=== PATIENT | female | born 1955 | race Caucasian/White ===

== ENCOUNTER 2023-08-11 13:11 | Emergency (ER) | payer MEDICARE, SELFPAY ==
--- NOTE | ~2023-08-11 | XR_ITS ---
Left wrist Technique: PA and lateral views were obtained. Clinical History: Injury Findings: There is a comminuted fracture distal radius with intra-articular extension. There is mild articular surface step-off, and mild displacement of the fracture fragments overall. There is advance d degenerative change of the triscaphe joint and first CMC joint. Remaining joint spaces are preserve d. Soft tissues are unremarkable. Impression: Comminuted, intra-articular, displaced fracture the distal radius, as detailed above. 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 Reviewed, dictated and finalized at location [facility]. Impression: Comminuted, intra-articular, displaced fracture the distal radius, as detailed above. 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
--- NOTE | ~2023-08-11 | CT_ITS ---
Non-contrast Head CT History: Head injury Technique: Axial non-contrast imaging of the brain was performed. Dose reduction technique was used on this scan by utilizing automated exposure control and iterative reconstruction technique. The dose -length product (DLP) was 605.33 mGy-cm. Findings: There is no evidence of intracranial hemorrhage, mass lesion, or acute infarct. There is c ystic encephalomalacia at the superior left frontal lobe with bifrontal craniotomy present. The ventr icles and subarachnoid spaces are normal in size. The calvarium appears normal. The visualized para nasal sinuses and mastoid air cells are clear. Impression: No acute abnormality seen. Presumed postsurgical encephalomalacia at the superior left frontal lobe with bifrontal superior cran iotomy. Correlate with surgical history. Reviewed, dictated and finalized at [facility]. Impression: No acute abnormality seen. Presumed postsurgical encephalomalacia at the superior left frontal lobe with b ifrontal superior craniotomy. Correlate with surgical history.
[2023-08-11 13:14] VITALS: BP 145/80; PULSE 92; RESP 16; TEMP 36.3; O2SAT 100
[2023-08-11 13:47] VITALS: BP 123/76; PULSE 84; RESP 14; O2SAT 95
[2023-08-11 14:16] VITALS: BP 125/75; PULSE 85; RESP 12; TEMP 36.6; O2SAT 97
--- NOTE | 2023-08-11 14:24 | WC.ED.TRAUMA ---
HPI - Trauma General Chief Complaint: Extremity Injury, Upper Stated Complaint: L arm deformity/pain Time Seen by Provider: 08/11/23 13:18 History of Present Illness HPI narrative: Patient tripped and fell and landed on her L wrist, head. No loss of consciousness but she did feel dazed afterwards, she has history of brain surgery so she would like to make sure everything looks okay. She has pain to her left wrist. No vomiting but did feel quite nauseous which she thinks may be from the pain Related Data Allergies Allergy/AdvReac Type Severity Reaction Status Date / Time No Known Allergies Allergy Verified 08/11/23 13:19 Review of Systems Review of Systems: CONST: No fever. HEENT: No sore throat C/V: No chest pain RESP: No cough GI: Nausea : No dysuria. M/S: Left wrist pain SKIN: No rash. NEURO: slight headache without focal numbness or weakness PSYCH: [No depression] Exam Narrative: EXAMINATION OF ORGAN SYSTEMS/BODY AREAS: Constitutional: Vital signs per nursing GENERAL:[No acute distress, non-toxic appearing.] HEAD: slight hematoma occipital EYES: EOMI, conjunctiva normal ENT: Hearing grossly intact LUNGS: Nonlabored breathing. HEART: [Regular rate and rhythm] ABD: [Soft], [nontender to palpation] EXT: able to move wrist and fingers, with tenderness and swelling to the radial wrist. normal radial pulse. SKIN: [No rashes or lesions.] NEURO: [Alert and oriented x 3. No gross focal sensory or strength deficits.] PSYCH: Normal affect Course Vital Signs Vital signs: Vital Signs Temperature 97.4 F L 08/11/23 13:14 Pulse Rate 92 08/11/23 13:14 Respiratory Rate 16 08/11/23 13:14 Blood Pressure 145/80 H 08/11/23 13:14 Pulse Oximetry 100 08/11/23 13:14 Oxygen Delivery Room Air 08/11/23 13:14 Temperature 98.0 F 08/11/23 15:02 Pulse Rate 89 08/11/23 15:02 Respiratory Rate 18 08/11/23 15:02 Blood Pressure 139/96 H 08/11/23 15:02 Pulse Oximetry 98 08/11/23 15:02 Oxygen Delivery Room Air 08/11/23 13:14 Procedures Orthopedic Splinting/Casting Injury #1: Splinting/Casting Date: 08/11/23 Splinting/Casting Time: 17:07 Side: left Upper Extremity Injury Location: wrist Upper Extremity Immobilizer: posterior splint and volar splint Splint: customized in ED OCL: short arm Pre-Procedure Neuro Vascular Exam: normal Post-Procedure Neuro Vascular Exam: normal MDM - Trauma MDM Narrative Medical decision making narrative: patient presents after mechanical fall with injury to her head and left wrist; she would like to have a CT for reassurance. She is neurovascularly intact with tenderness and swelling to her left wrist, but normal pulse, able to wiggle fingers. X-ray obtained on my own independent interpretation consistent with a radius fracture that does not appear significantly displaced. Discussed with orthopedist, he would like to have both volar and dorsal splint placed, with follow-up in the clinic. patient agreeable to this plan. Discharge Plan Discharge Clinical Impression: Fracture of wrist Patient Disposition: Home, Self-Care Condition: Stable Instructions: Antibiotic Form, Wrist Fracture in Adults (ED) Additional Instructions: Please keep your arm in the splint, come back to the hospital if you have any further issues such as increasing pain, new numbness or weakness. Please follow-up with orthopedist. Prescriptions: New oxycodone 5 mg capsule 5 mg PO Q6H PRN (Reason: pain) Qty: 14 0RF acetaminophen [Tylenol Extra Strength] 500 mg tablet 1,000 mg PO Q6H PRN (Reason: pain) Qty: 50 0RF methocarbamol 750 mg tablet 750 mg PO TID PRN (Reason: muscle spasm) Qty: 30 0RF Follow-up/Referrals: Cedric Hill DO [Physician] - Zaki Cabrera MD [Physician] - 3 Days
[2023-08-11] MEDS: MORPHINE SULFATE (*CRX) 4 MG/ML INJ IV PUSH (14:27)
[2023-08-11 15:02] VITALS: BP 139/96; PULSE 89; RESP 18; TEMP 36.7; O2SAT 98
== END 2023-08-11 15:23 | disposition home or self-care (01) ==
PROVIDERS: Emergency Provider Emergency Medicine
DX: S52.572A Other intraarticular fracture of lower end of left radius, initial encounter for closed fracture (principal); W01.0XXA Fall on same level from slipping, tripping and stumbling without subsequent striking against object, initial encounter
CPT/HCPCS: 29125; 70450; 73100; 96374; 99284; A4565; J2270

== ENCOUNTER 2024-01-01 10:00 | Outpatient (RCR) | payer MEDICARE, SELFPAY ==
--- NOTE | 2023-11-12 09:47 | OTOPEVAL1 ---
Assessment and note entered by Manoj Joseph, LETHA/Hakan, BARTOLOME Evaluation Information 11/12/23 Assessment Status Evaluation Diagnosis Left distal radius fracture ICD-10 Condition Codes (OT) M25.642,M25.632 Onset 08/11/23 Subjective Information Patient is right handed. She is about 12 weeks out from a distal radius fracture, non surgical. She has been wearing an immobilizer timekeeper unless she is bathing or just resting. She has been trying to complete passive ROM on her fingers, but she notes they are swollen and stiff. Per orthopedic precautions, ROM only at this time, no strengthening. Repeat x-ray scheduled in 2 weeks to assess readiness to progress to strengthening. At this time she is only using the left hand for very light tasks. Assessment OT Clinical Summary Patient referred to OT with dx of left distal radius fracture. She presents with residual stiffness and weakness that limits return to functional use for ADLs. Skilled OT indicated to maximize functional ROM and use via therapeutic exercise, functional therapeutic activities, use of modalities, and HEP instruction and progression. Plan of Care Interventions Therapeutic Exercise,Manual Therapy,Therapeutic Activities,Hot Pack/Cold Pack,Paraffin OT Services Indicated Yes Treatment Frequency and 1-2x/week for 6 visits Duration These treatments will address the objective and functional deficits as defined above. The patient will be advanced safely and appropriately in order for the patient to progress towards his/her prior level of function. Additional exercises will be introduced and as well as a comprehensive home exercise program upon discharge, if needed, ?to ensure carryover of functional gains achieved in the clinic. This treatment plan has been reviewed and agreement upon by the patient.
--- NOTE | 2023-11-12 09:48 | OPREHPOC ---
Outpatient Therapy Plan of Care This is a Multidisciplinary Plan of Care that may contain components documented by all disciplines (PT, OT, and ST.) OT Problem 1 OT Problem #1 Knowledge Deficit OT Goal 1 Goal 1. Patient to be independent with instructed materials. Target Visit 6 OT Problem 2 OT Problem #2 Impaired Range of Motion OT Goal 1 Goal Patient to increase active ROM of the left UE: 1. Supination to 75 degrees 2. Wrist flexion to 50 degrees 3. Wrist extension to 50 degrees 4. Finger flexion as measured by <2 cm gap between the finger tips and DPC when attempting to make a hook fist Target Visit 6 OT Problem 3 OT Problem #3 Impaired Strength OT Goal 1 Goal Hold strengthening goals until cleared by MD 1. Patient to be able to complete left forearm pronation/supination strengthening with 1 lb. free weight x20 reps. 2. Patient to be able to complete left wrist flexion/extension/deviation strengthening with 1 lb. free weight x20 reps. 3. Patient to be able to complete left filler spreader strengthening with at least yellow theraputty x5 minutes without pain. Target Visit 6
--- NOTE | 2023-12-03 11:59 | OTOPPROG ---
Assessment and note entered by Manoj Joseph, LETHA/Hakan, CHT OT Progress Update 12/03/23 Diagnosis Left distal radius fracture ICD-10 Condition Codes (OT) M25.642,M25.632 Onset 08/11/23 Subjective Information Patient reporting progress with her finger ROM, noting only experiencing stiffness first thing in the morning, but that they loosen up quickly. She has stopped wearing her immobilizer a week ago and she has been trying to use her left hand for more tasks. She states she has been able to turn doorknobs and lift light objects, such as a cup of coffee. Wrist flexion improved from 35 to 45 deg. Wrist extension improved from [address] improved from 10 to 22 deg. UD remained at 15 deg. Supination improved from 50 to 75 deg. Pronation improved from 80 to 85 deg. Finger tips are now able to touch the palm when making a fist. This improved from a 1 cm gap. When making a hook fist, finger tips II-V are 2 cm away from touching the palm. This improved from a 3 cm gap. (L) early childhood teacher assistant strength 23 lbs. (R) early childhood teacher assistant strength 56 lbs. Assessment OT Clinical Summary Patient referred to OT with dx of left distal radius fracture. She has participated in 6 OT sessions focused on improving functional ROM of the left forearm, wrist, and hand. She has made excellent progress since the start of care. Last week we received new orders to begin strengthening and she tolerates a 1 lb. well. Continued skilled OT indicated to maximize functional ROM and strength via therapeutic exercise, functional therapeutic activities, use of modalities, and HEP instruction and progression. Plan of Care Interventions Therapeutic Exercise,Manual Therapy,Therapeutic Activities,Hot Pack/Cold Pack,Paraffin OT Services Indicated Yes Treatment Frequency and 1-2x/week for 6 visits Duration These treatments will address the objective and functional deficits as defined above. The patient will be advanced safely and appropriately in order for the patient to progress towards his/her prior level of function. Additional exercises will be introduced
--- NOTE | 2023-12-03 12:00 | OPREHPOC ---
Outpatient Therapy Plan of Care This is a Multidisciplinary Plan of Care that may contain components documented by all disciplines (PT, OT, and ST.) OT Problem 1 OT Problem #1 Knowledge Deficit OT Goal 1 Goal 1. Patient to be independent with instructed materials. ---OT POC UPDATE 12/03/23--- 1. Met, continue as HEP is progressed Target Visit 12 OT Problem 2 OT Problem #2 Impaired Range of Motion OT Goal 1 Goal Patient to increase active ROM of the left UE: 1. Supination to 75 degrees 2. Wrist flexion to 50 degrees 3. Wrist extension to 50 degrees 4. Finger flexion as measured by <2 cm gap between the finger tips and DPC when attempting to make a hook fist ---OT POC UPDATE 12/03/23--- 1. Met 2. Progressing, continue 3. Progressing, continue 4. Progressing, continue Target Visit 12 OT Problem 3 OT Problem #3 Impaired Strength OT Goal 1 Goal Hold strengthening goals until cleared by MD 1. Patient to be able to complete left forearm pronation/supination strengthening with 1 lb. free weight x20 reps. 2. Patient to be able to complete left wrist flexion/extension/deviation strengthening with 1 lb. free weight x20 reps. 3. Patient to be able to complete left urban anthropologist strengthening with at least yellow theraputty x5 minutes without pain. ---OT POC UPDATE 12/03/23--- 1. Patient tolerating 10-15 reps, continue to 20 and progress to 2 lbs. as able 2. Patient tolerating 10-15 reps, continue to 20 and progress to 2 lbs. as able 3. Patient using grijalva, progress to yellow as able Target Visit 12
--- NOTE | 2024-01-01 10:37 | OTOPDC ---
Assessment and note entered by Manoj Joseph, LETHA/Hakan, CHT Evaluation Information Assessment Status Discharge Diagnosis Left distal radius fracture ICD-10 Condition Codes (OT) M25.642,M25.632 Onset 08/11/23 Subjective Information Patient reporting progress with left UE use, noting her ability to carry grocery bags, turn a door knob, and pre coder objects with improved strength. She reports she's overall doing very well and happy with her progress. Wrist flexion improved to 50 deg. (passive 60 deg.) Wrist extension improved 55 deg. (passive 60 deg.) RD improved to 20 deg. UD remained at 15 deg. Supination 75 deg. Pronation 85 deg. Finger ROM returned to normal limits (L) pre coder strength improved from 23 lbs. to 37 lbs. Reported Pain Level Pain Score 0: Self Report Assessment OT Clinical Summary Patient referred to OT with dx of left distal radius fracture. She has participated in 12 OT sessions focused on improving functional ROM of the left forearm, wrist, and hand. She has made excellent progress since the start of care. She has tolerated strengthening very well and is returning to heavier lifting with the left UE. Reviewed HEP with patient today and recommending she continue to work on forearm and wrist flexibility as well as gross strengthening. She demonstrates excellent understanding. Discharging OT with goals met. Plan of Care OT Services Indicated No
== END 2024-01-01 14:20 | disposition home or self-care (01) ==
LOC: ANHOT 10:00
PROVIDERS: Visit Provider Orthopaedic Surgery
DX: S52.542D Smith's fracture of left radius, subsequent encounter for closed fracture with routine healing (principal)
CPT/HCPCS: 97018; 97110; 97165; 97530